=== PATIENT | female | born 1945 | race Two or more races ===

== ENCOUNTER 2017-12-19 22:30 | Emergency (ER) | payer MEDICARE, MEDICAID ==
[~2017-12-19] VITALS: Ht 165.1 cm; Wt 98.0 kg
[2017-12-19 22:38] VITALS: BP 174/94
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
[2017-12-20] MEDS ORDERED: CEPHALEXIN MONOHYDRATE 500 MG CAPSULE PO ONE ×2 (01:08→01:30)
[2017-12-20] MEDS ORDERED: SULFAMETH/TRIMETH 800/160 MG 1 UDTAB TABLET PO ONE ×2 (01:09→01:30)
== END 2017-12-20 02:05 | disposition home or self-care (01) ==
LOC: ER 22:32
DX: L03.115 Cellulitis of right lower limb (principal)
CPT/HCPCS: 99283; A4606; Z7610

== ENCOUNTER 2018-02-11 16:15 | Emergency (ER) | payer MEDICARE, MEDICAID ==
[~2018-02-11] VITALS: Ht 165.1 cm; Wt 97.5 kg
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
[2018-02-11] MEDS ORDERED: methylPREDNISolone SOD SUCC 125 MG/2ML VIAL IM ONE (17:00)
[2018-02-11] MEDS ORDERED: methylPREDNISolone SOD SUCC 125 MG/2ML VIAL ONE (17:08)
--- NOTE | 2018-02-11 17:08 | NUR ---
PT GIVEN SOLUMEDOL 125 MG IM PER MD ORDER RT DELTOID TOLERATED WELL
--- NOTE | 2018-02-11 17:22 | NUR ---
PT. VERBALIZED UNDERSTANDING OF AFTERCARE INSTRUCTIONS.C-spine cleared by ER MD. Patient discharged to home in stable condition. Written and verbal after care instructions given. Patient verbalizes understanding of instruction.
[2018-02-11 17:23] VITALS: BP 128/68
== END 2018-02-11 17:22 | disposition home or self-care (01) ==
LOC: ER 16:21
DX: L50.9 Urticaria, unspecified (principal)
CPT/HCPCS: 96372; 99283; A4606; J2930; Z7610

== ENCOUNTER 2018-02-18 01:30 | Emergency (ER) | payer MEDICARE, MEDICAID ==
[~2018-02-18] VITALS: Ht 147.3 cm; Wt 96.6 kg
[2018-02-18 01:40] VITALS: BP 172/90
[2018-02-18] MEDS ORDERED: DEXAMETHASONE SOD PHOSPHATE 10 MG/ML VIAL ONE (02:35)
[2018-02-18] MEDS ORDERED: DEXAMETHASONE SOD PHOSPHATE 4 MG/ML VIAL IM ONE (03:00)
== END 2018-02-18 02:44 | disposition home or self-care (01) ==
LOC: ER 01:32
DX: R21 Rash and other nonspecific skin eruption (principal)
CPT/HCPCS: 96372; 99283; A4606; J1100; Z7610